=== PATIENT | male | born 1950 | race Caucasian/White ===

== ENCOUNTER → 2017-04-16 | Outpatient (CLI) | payer MEDICARE, BC ==
[2017-04-16 10:09] LABS: Blood Urea Nitrogen 10 mg/dL (9-20); Non-African American GFR(MDRD) >60 (>60 ml/min/1.73 sqM)
--- NOTE | 2017-04-16 11:22 | CT ---
EXAMINATION TYPE: CT angio chest DATE OF EXAM: 04/16/2017 COMPARISON: CTA chest April 10, 2016 and older studies HISTORY: AAA CT DLP: 805 mGycm. Automated Exposure Control for Dose Reduction was Utilized. CONTRAST: CTA scan of the thorax is performed without and with IV Contrast, patient injected with 100 mL of Omn ipaque 350, pulmonary embolism protocol. Three-D reconstructed images are created on independent work station and reviewed. FINDINGS: LUNGS: The lungs are grossly clear, there is no concerning parenchymal mass or nodule identified. T here is no pleural effusion or pneumothorax seen. The tracheobronchial tree is patent. MEDIASTINUM: There is satisfactory enhancement of the pulmonary artery and its branches, there is no CT evidence for pulmonary embolism. There are no greater than 1 cm hilar or mediastinal lymph nodes. No cardiomegaly or pericardial effusion is seen. Ascending aorta measures up to 5.0 cm diameter on axial image 33 felt not significantly changed from prior. No aneurysm of the aortic arch or descendi ng aorta is present. No significant plaque or stenosis seen. Coronary artery calcification is redemon strated which is noted marker for coronary artery disease. OTHER: There is 1.6 cm splenule posterior to the spleen redemonstrated on axial image 64. There is 2. 1 x 1.5 cm left adrenal mass with Hounsfield units less than 10 consistent with lipid rich adenoma fe lt stable accounting for technical differences. There is moderate multilevel spurring in the lower th oracic spine seen. IMPRESSION: Stable 5.0 cm ascending aortic aneurysm.
== END | disposition home or self-care (01) ==
LOC: RADCTMAIN 09:39
PROVIDERS: ATTEND Thoracic Surgery (Cardiothoracic Vascular Surgery)
DX: I71.2 Thoracic aortic aneurysm, without rupture (principal)
CPT/HCPCS: 82565; 84520; 71275; 36415; Q9967

== ENCOUNTER → 2018-04-24 | Outpatient (CLI) | payer MEDICARE ==
--- NOTE | 2018-04-24 12:43 | CT ---
EXAMINATION TYPE: CT angio chest DATE OF EXAM: 04/24/2018 COMPARISON: 04/16/2017 HISTORY: Thoracic Aorta Aneurysm CT DLP: 525.5 mGycm. Automated Exposure Control for Dose Reduction was Utilized. CONTRAST: CTA scan of the thorax is performed with IV Contrast, patient injected with 100 ml mL of Isovue 300, pulmonary embolism protocol. MIP Images are created on CT scanner and reviewed. FINDINGS: LUNGS: The lungs are grossly clear, there is no concerning parenchymal mass or nodule identified. T here is no pleural effusion or pneumothorax seen. The tracheobronchial tree is patent. MEDIASTINUM: The ascending thoracic aortic aneurysm is known to the patient is unchanged from the kyung or of 04/16/2017 measuring 5.0 cm on coronal image 36 at the level of the main pulmonary artery. Aorti c root is also aneurysmal measuring 4.7 cm. There is no evidence of aortic dissection. There is a con ventional three-vessel branch pattern of the aortic arch. No focal aneurysmal outpouching. There are moderate coronary calcifications, specifically of the left anterior descending coronary artery there most severe. No descending thoracic aortic aneurysm arm main pulmonary artery enlargement is seen. Th ere is a small hiatal hernia in the posterior mediastinum. There are no greater than 1 cm hilar or mediastinal lymph nodes. No cardiomegaly or pericardial eff usion is seen. OTHER: Low-density 1.6 cm left adrenal gland lesion is compatible with a benign lipid rich adrenal ad enoma. Small splenule is seen adjacent to the [place] spleen. Hepatic enhancement is slightly heteroge nous although this could relate to phase of enhancement given the angiographic phase and appears over all similar to exam of 04/16/2017 with heterogeneity most apparent near the gallbladder fossa on image 109. This does appear somewhat rounded and masslike on liver windows and further imaging could be pe rformed. IMPRESSION: 1. Stable ascending thoracic aortic aneurysm and dilatation of the aortic root in comparison to exam of 04/16/2017. 2. Heterogenous rounded appearing hepatic region for which further characterization with dynamic enha nced MR could be performed.
== END | disposition home or self-care (01) ==
LOC: RADCTMAIN 09:51
PROVIDERS: ATTEND Thoracic Surgery (Cardiothoracic Vascular Surgery)
DX: I71.2 Thoracic aortic aneurysm, without rupture (principal)
CPT/HCPCS: 82565; 84520; 71275; 36415; Q9967

== ENCOUNTER → 2019-05-12 | Outpatient (CLI) | payer MEDICARE ==
--- NOTE | 2019-05-12 12:15 | CT ---
EXAMINATION TYPE: CT angio chest DATE OF EXAM: 05/12/2019 11:50 AM COMPARISON: 04/24/2018 HISTORY: thoracic aneurysm CT DLP: 359.4 mGycm Automated exposure control for dose reduction was used. CONTRAST: CTA scan of the thorax is performed with IV Contrast, patient injected with 100 mL of Isovue 370, pul monary embolism protocol. . FINDINGS: LUNGS: The lungs are grossly clear, there is no concerning parenchymal mass or nodule identified. T here is no pleural effusion or pneumothorax seen. The tracheobronchial tree is patent. Central basil ar bronchiectasis noted. Small bleb is seen in the superior segment right lower lobe posteriorly. MEDIASTINUM: Aorta: There is diffuse dilation of the ascending aorta with maximum dimension measuring 5 x 5 cm whi ch is stable from the prior exam. Aortic root measures 4.7 cm and is stable. There is no evidence of aortic dissection. Conventional three-vessel branching anatomy of the aortic arch. No focal aneurysmal dilation. Moderately calcified coronary artery three-vessel disease. Descending thoracic aorta and main pulmonary artery appear to measure within normal limits. Small hia pati hernia incidentally noted. Small amount pericardial fluid is seen in the superior pericardial recess. OTHER: Low-density 1.6 cm left adrenal gland lesion is compatible with a benign lipid rich adrenal a denoma. Small splenule is seen adjacent to the [place] spleen. Hepatic enhancement is slightly heterogenous although this could relate to phase of enhancement given the angiographic phase and appears overall similar to prior exam with heterogeneity most apparent ne ar the gallbladder fossa. This does appear somewhat rounded and masslike on liver windows and measures approximately 3 cm. Hypertrophic and degenerative change of the spine noted. IMPRESSION: 1. Stable ascending thoracic aortic aneurysm and dilatation of the aortic root in comparison to PRIOR EXAM. 2. Heterogenous rounded appearing hepatic ENHANCING MASS for which further characterization with lala yusuf enhanced MR could be performed.
== END | disposition home or self-care (01) ==
LOC: RADCTMAIN 09:49
PROVIDERS: ATTEND Thoracic Surgery (Cardiothoracic Vascular Surgery)
DX: I71.2 Thoracic aortic aneurysm, without rupture (principal)
CPT/HCPCS: 82565; 84520; 71275; 36415; Q9967

== ENCOUNTER → 2020-05-18 | Outpatient (CLI) | payer MEDICARE ==
--- NOTE | 2020-05-18 12:53 | CT ---
EXAMINATION TYPE: CT chest w con DATE OF EXAM: 05/18/2020 COMPARISON: CTA chest May 12, 2019 older studies HISTORY: F/U thoracic aneurysm CT DLP: 316.7 mGycm. Automated Exposure Control for Dose Reduction was Utilized. TECHNIQUE: CT scan of the thorax is performed following with IV Contrast, patient injected with 100 mL of Isovue 300. FINDINGS: LUNGS: The lungs remain grossly clear, there is no concerning parenchymal mass or nodule identified. There is no pleural effusion or pneumothorax seen. The tracheobronchial tree is patent. MEDIASTINUM: Satisfactory enhancement of the central pulmonary arteries. Persistent ascending aortic aneurysm measuring up to 5.1 cm at level of the main pulmonary artery axial image 30. No aneurysmal e xtension into the arch or descending aorta. Normal 3 vessel origins from arch. There are no greater t yin 1 cm hilar or mediastinal lymph nodes. No cardiomegaly or pericardial effusion is seen. OTHER: Stable small hiatal hernia. Stable 2.2 cm left adrenal mass axial image 58 consistent with adán ign adenoma and smaller posterior splenule axial image 56. IMPRESSION: Stable 5.1 cm ascending aortic aneurysm when accounting for technical differences.
== END | disposition home or self-care (01) ==
LOC: RADCTMAIN 11:41
PROVIDERS: ATTEND Thoracic Surgery (Cardiothoracic Vascular Surgery)
DX: I71.2 Thoracic aortic aneurysm, without rupture (principal)
CPT/HCPCS: 82565; 84520; 71260; 36415; Q9967

== ENCOUNTER → 2021-05-16 | Outpatient (CLI) | payer MEDICARE ==
--- NOTE | 2021-05-16 11:25 | CT ---
EXAMINATION TYPE: CT angio chest DATE OF EXAM: 05/16/2021 9:49 AM COMPARISON: CT chest May 18, 2020 HISTORY: thoracic aortic aneurysm CT DLP: 627.5 mGycm Automated exposure control for dose reduction was used. CONTRAST: CTA scan of the thorax is performed without and with IV Contrast, patient injected with 100 mL of Iso aliica 370, aneurysm protocol. 3D reconstructed images are created on an independent workstation and re viewed.. FINDINGS: LUNGS: The lungs are grossly clear, there is no concerning parenchymal mass or nodule identified. T here is no pleural effusion or pneumothorax seen. The tracheobronchial tree is patent. MEDIASTINUM: There is satisfactory enhancement of the Central pulmonary arteries. Persistent ascendi ng aortic aneurysm measuring up to 5.0 cm at level of main pulmonary artery axial image 31 series 6. No extension into the arch or descending aorta. No significant change from most recent prior. There a re no greater than 1 cm hilar or mediastinal lymph nodes. No cardiomegaly or pericardial effusion i s seen. OTHER: Stable 2.2 cm low dense left adrenal mass axial image 61. Peripheral just over 1.0 cm flash f illing area of anterior right hepatic lobe axial image 64 is presumed transient hepatic attenuation d ifference. IMPRESSION: There is stable 5.0 cm ascending aortic aneurysm when accounting for technical difference s.
== END | disposition home or self-care (01) ==
LOC: RADCTMAIN 08:27
PROVIDERS: ATTEND Thoracic Surgery (Cardiothoracic Vascular Surgery)
DX: I71.2 Thoracic aortic aneurysm, without rupture (principal)
CPT/HCPCS: 82565; 84520; 71275; 36415; Q9967

== ENCOUNTER → 2022-06-01 | Outpatient (CLI) | payer MEDICARE ==
--- NOTE | 2022-06-01 12:23 | CT ---
EXAMINATION TYPE: CT angio chest DATE OF EXAM: 06/01/2022 12:08 PM COMPARISON: 05/16/2021 HISTORY: Thoracic aortic aneurysm, without rupture CT DLP: 788 mGycm Automated exposure control for dose reduction was used. CONTRAST: CTA scan of the thorax is performed without and with IV Contrast, patient injected with 100 ml mL of Isovue 370, pulmonary embolism protocol. . FINDINGS: LUNGS: The lungs are grossly clear, there is no concerning parenchymal mass or nodule identified. T here is no pleural effusion or pneumothorax seen. The tracheobronchial tree is patent. Emphysematou s changes are seen and there is central and basilar mild bronchiectasis. MEDIASTINUM: There is satisfactory enhancement of the pulmonary artery and its branches, there is no CT evidence for pulmonary embolism. There are no greater than 1 cm hilar or mediastinal lymph nodes. No pericardial effusion is seen. Coronary artery calcification noted. Calcification of the aortic valve noted. AORTA: There is aneurysmal dilation of the ascending aorta with a maximal dimension of 5.1 cm stable from pr ior exam. Ascending thoracic aorta is stable and standard 3 vessel aortic arch anatomy OTHER: Hypertrophic and degenerative changes spine. There is a stable left adrenal mass measuring 4 Hounsfield units and 2 cm most typical of an adenoma. Accessory spleens noted. There remains an area of abnormal attenuation involving the liver appears somewhat increased from prior exam within the lef t lobe of the liver extending into the anterior margin of the right lobe lateral segment. This could represent an area of focal fatty truncation but appears somewhat nodular. Recommend MRI of the liver. IMPRESSION: 1. Ascending aortic aneurysm measures 5.1 cm and previously measured 5 cm. 2. Nodular abnormal attenuation left lobe of the liver. Recommend MRI of the liver. 3. Stable left adrenal nodule most typical of adenoma. 4. Dense coronary artery calcification correlate clinically. 5. COPD with central and basilar mild bronchiectasis. 6. Calcifications of the aortic valve.
== END | disposition home or self-care (01) ==
LOC: RADCTMAIN 09:26
PROVIDERS: ATTEND Internal Medicine Interventional Cardiology
DX: I71.20 Thoracic aortic aneurysm, without rupture, unspecified (principal); I25.10 Atherosclerotic heart disease of native coronary artery without angina pectoris; J44.9 Chronic obstructive pulmonary disease, unspecified; K76.89 Other specified diseases of liver
CPT/HCPCS: 82565; 84520; 71275; 36415; Q9967

== ENCOUNTER → 2022-10-23 | Outpatient (CLI) | payer MEDICARE ==
[2022-10-23 15:54] LABS: ALT 32 U/L (10-49); AST 39 U/L (14-35); African American GFR (CKD) 80.3 (60.0-200.0); Albumin 4.3 g/dL (3.8-4.9); Albumin/Globulin Ratio 1.26 (1.60-3.17); Alkaline Phosphatase 163 U/L (41-126); BUN/Creat Ratio 12.08 Ratio (12.00-20.00); Blood Urea Nitrogen 12.8 mg/dL (9.0-27.0); Calcium 9.4 mg/dL (8.7-10.3); Carbon Dioxide 27.1 mmol/L (20.0-27.5); Chloride 102 mmol/L (96-109); Chol/HDL Ratio 2.37 Ratio; Globulin 3.4 g/dL (1.6-3.3); Glucose 101 mg/dL (70-110); LDL Cholesterol,Calculated 75.4 mg/dL (0.0-131.0); Non-African American GFR(CKD) 69.3 (60.0-200.0); Potassium 5.1 mmol/L (3.5-5.5); Sodium 135 mmol/L (135-145); Total Protein 7.6 g/dL (6.2-8.2); VLDL Calculation 8.46 mg/dL (5.00-40.00)
== END | disposition home or self-care (01) ==
LOC: LABWHC1 09:51
PROVIDERS: ATTEND Internal Medicine Interventional Cardiology
DX: E78.2 Mixed hyperlipidemia (principal)
CPT/HCPCS: 36415; 80053; 80061

== ENCOUNTER → 2023-06-26 | Outpatient (CLI) | payer MEDICARE ==
[2023-06-26 12:02] LABS: African American GFR (CKD) >90 (>60 ml/min/1.73 sqM); Blood Urea Nitrogen 17 mg/dL (9-20); Non-African American GFR(CKD) 79 (>60 ml/min/1.73 sqM)
--- NOTE | 2023-06-26 14:14 | CT ---
"EXAMINATION TYPE: CT angio chest DATE OF EXAM: 06/26/2023 2:01 PM COMPARISON: 06/01/2020 HISTORY: THORACIC AORTIC ANEURYSM CT DLP: 754 mGycm Automated exposure control for dose reduction was used. CONTRAST: CTA scan of the thorax is performed without and with IV Contrast, patient injected with 100ml mL of I sovue 370, pulmonary embolism protocol. . FINDINGS: LUNGS: The lungs are grossly clear, there is no concerning parenchymal mass or nodule identified. The re is no pleural effusion or pneumothorax seen. The tracheobronchial tree is patent. Emphysematous ch anges are seen and there is central and basilar mild bronchiectasis. MEDIASTINUM: There is satisfactory enhancement of the pulmonary artery and its branches, there is no CT evidence for pulmonary embolism. There are no greater than 1 cm hilar or mediastinal lymph nodes. No pericardial effusion is seen. Coronary artery calcification noted. Calcification of the aortic juan ramon ve noted. AORTA: There is aneurysmal dilation of the ascending aorta with a maximal dimension of 5.1 cm stable from prior exam. No significant atherosclerotic changes of the aorta. There is standard 3 vessel aort ic arch anatomy OTHER: Hypertrophic and degenerative changes spine. There is a stable left adrenal mass measuring 4 H ounsfield units and 2 cm most typical of an adenoma. Accessory spleens noted. There remains an area o f abnormal attenuation involving the liver appears somewhat increased from prior exam within the left lobe of the liver extending into the anterior margin of the right lobe lateral segment. This could r epresent an area of focal fatty truncation but appears somewhat nodular. Recommend MRI of the liver. Small hiatal hernia. IMPRESSION: 1. Ascending aortic aneurysm measures 5.1 cm and previously measured 5.1 cm. 2. Nodular abnormal mass left lobe of the liver. Mild intrahepatic biliary ductal dilation Recommend MRI of the liver to exclude mass. 3. Stable left adrenal nodule most typical of adenoma. 4. Dense coronary artery calcification correlate clinically. 5. COPD with central and basilar mild bronchiectasis. 6. Calcifications of the aortic valve. A Yellow level critical message alert has been initiated for Sohail Mares MD via the [employer] 36 0 | Critical Results System on 06/26/2023 2:08 PM. This message alert has been sent to Sohail Mares MD via the preferences provided by the clinician for the receipt of Radiology Critical Findings. [facility] – [place] [id number]."
== END | disposition home or self-care (01) ==
LOC: RADCTMAIN 11:20
PROVIDERS: ATTEND Internal Medicine Interventional Cardiology
DX: I71.21 Aneurysm of the ascending aorta, without rupture (principal); I25.10 Atherosclerotic heart disease of native coronary artery without angina pectoris; J44.9 Chronic obstructive pulmonary disease, unspecified; J47.9 Bronchiectasis, uncomplicated; E27.8 Other specified disorders of adrenal gland; I70.0 Atherosclerosis of aorta; R16.0 Hepatomegaly, not elsewhere classified
CPT/HCPCS: 82565; 84520; 71275; Q9967

== ENCOUNTER 2023-07-29 10:53 | Emergency (ER) | payer MEDICARE ==
[2023-07-29 12:21] LABS: Basophils % (A) 0 %; Eosinophils # (A) 0.2 k/uL (0-0.7); Eosinophils % (A) 3 %; HCT 39.1 % (39.0-53.0); HGB 13.3 gm/dL (13.0-17.5); Lymphocytes # (A) 1.3 k/uL (1.0-4.8); Lymphocytes % (A) 16 %; MCH 31.1 pg (25.0-35.0); MCV 91.5 fL (80.0-100.0); Mean Platelet Volume 11.7; Monocytes # (A) 0.7 k/uL (0-1.0); Monocytes % (A) 9 %; Neutrophils # (A) 5.9 k/uL (1.3-7.7); Neutrophils % (A) 70 %; Platelet Count 204 k/uL (150-450); RBC 4.27 m/uL (4.30-5.90); RDW 15.7 % (11.5-15.5); WBC 8.3 k/uL (3.8-10.6)
--- NOTE | 2023-07-29 12:21 | ED ---
General Adult HPI - General Chief complaint: Abdominal Pain Stated complaint: jaundice Time Seen by Provider: 07/29/23 12:03 Source: patient, RN notes reviewed, old records reviewed Mode of arrival: ambulatory Limitations: no limitations - History of Present Illness Initial comments: 73-year-old male presenting with weight loss and jaundice. Patient states that he was diagnosed with a liver mass approximately one month ago. He has been receiving outpatient workup including MRI and has a scheduled appointment with gastroenterology. He states that his appointment is several weeks away and he's had a rapid progression of his jaundice as well as a 15 pound weight loss. He denies pain. Denies vomiting. - Related Data Home Medications Medication Instructions Recorded Confirmed Atorvastatin [Lipitor] 20 mg PO DAILY 07/29/23 07/29/23 Allergies Allergy/AdvReac Type Severity Reaction Status Date / Time No Known Allergies Allergy Verified 07/29/23 14:25 Review of Systems ROS Statement: Those systems with pertinent positive or pertinent negative responses have been documented in the HPI. ROS Other: All systems not noted in ROS Statement are negative. Past Medical History Past Medical History: Hyperlipidemia Additional Past Medical History / Comment(s): Mass on Liver. History of Any Multi-Drug Resistant Organisms: None Reported Past Surgical History: No Surgical Hx Reported Past Psychological History: No Psychological Hx Reported Smoking Status: Never smoker Past Alcohol Use History: Occasional Past Drug Use History: None Reported General Exam Limitations: no limitations General appearance: alert, in no apparent distress Head exam: Present: atraumatic, normocephalic Neck exam: Present: normal inspection. Absent: tenderness Respiratory exam: Present: normal lung sounds bilaterally. Absent: respiratory distress, wheezes Cardiovascular Exam: Present: regular rate, normal rhythm GI/Abdominal exam: Present: soft. Absent: distended, tenderness Extremities exam: Present: normal inspection Neurological exam: Present: alert, oriented X3, CN II-XII intact Skin exam: Present: warm, dry, other (Jaundice) Course Vital Signs 07/29/23 07/29/23 10:55 13:35 Temperature 98.9 F Pulse Rate 79 67 Respiratory 20 18 Rate Blood Pressure 133/82 106/69 O2 Sat by Pulse 99 97 Oximetry Medical Decision Making - Medical Decision Making Was pt. sent in by a medical professional or institution (, PA, FISH AGENT, urgent care, hospital, or snf...) When possible be specific @ -No Did you speak to anyone other than the patient for history (EMS, parent, family, police, friend...)? What history was obtained from this source @ -No Did you review nursing and triage notes (agree or disagree)? Why? @ -I reviewed and agree with nursing and triage notes Were old charts reviewed (outside hosp., previous admission, EMS record, old EKG, old radiological studies, urgent care reports/EKG's, snf records)? Report findings @ -No old charts were reviewed Differential Diagnosis (chest pain, altered mental status, abdominal pain women, abdominal pain men, vaginal bleeding, weakness, fever, dyspnea, syncope, headache, dizziness, GI bleed, back pain, seizure, CVA, palpatations, mental health, musculoskeletal)? @ -not applicable EKG interpreted by me (3pts min.). @ -As above X-rays interpreted by me (1pt min.). @ -None done CT interpreted by me (1pt min.). @ Ultrasound showing dilated common bile duct and concern for, bile duct obstruction U/S interpreted by me (1pt. min.). @ -None done What testing was considered but not performed or refused? (CT, X-rays, U/S, labs)? Why? @ -None What meds were considered but not given or refused? Why? @ -None Did you discuss the management of the patient with other professionals (professionals i.e. , PA, FISH AGENT, lab, RT, psych nurse, healthcare social worker, community service technician, teacher, commanding officer motorized squad, rehabilitation case coordinator)? Give summary @ -[Case discussed with [facility] Dr. carrillo. [facility]. Was smoking cessation discussed for >3mins.? @ -No Was critical care preformed (if so, how long)? @ -No Were there social determinants of health that impacted care today? How? (Homelessness, low income, unemployed, alcoholism, drug addiction, transportation, low edu. Level, literacy, decrease access to med. care, fdc, rehab)? @ -No Was there de-escalation of care discussed even if they declined (Discuss DNR or withdrawal of care, Hospice)? DNR status @ -No What co-morbidities impacted this encounter? (DM, HTN, Smoking, COPD, CAD, Cancer, CVA, ARF, Chemo, Hep., AIDS, mental health diagnosis, sleep apnea, morbid obesity)? @ -None Was patient admitted / discharged? Hospital course, mention meds given and route, prescriptions, significant lab abnormalities, going to OR and other pertinent info. @ -73-year-old male presenting with painless jaundice, no significant past medical history. Ultrasound today shows a dilated common bile duct and try ductal mass. The bilirubin is elevated at 11. The patient's additional laboratory testing reveals a transaminitis and elevated alkaline phosphatase. CBC unremarkable, left lites unremarkable. Patient is hemodynamically stable. I did discuss case with Dr. Manuel pemberton for gastroenterology who recommends transfer for higher level of care to [facility]. Undiagnosed new problem with uncertain prognosis? @ -No Drug Therapy requiring intensive monitoring for toxicity (Heparin, Nitro, Insulin, Cardizem)? @ -No Were any procedures done? @ -No Diagnosis/symptom? @ Obstructing biliary mass with hyperbilirubinemia Acute, or Chronic, or Acute on Chronic? @ -[Acute Uncomplicated (without systemic symptoms) or Complicated (systemic symptoms)? @ -default Side effects of treatment? @ -No Exacerbation, Progression, or Severe Exacerbation? @ -No Poses a threat to life or bodily function? How? (Chest pain, [place], [place], pneumonia, PE, COPD, DKA, ARF, appy, cholecystitis, CVA, Diverticulitis, Homicidal, Suicidal, threat to staff... and all critical care pts) @ -[Yes, biliary malignancy - Lab Data Result diagrams: 07/29/23 12:10 07/29/23 12:10 Lab Results 07/29/23 07/29/23 07/29/23 Range/Units 12:10 12:10 12:10 WBC 8.3 (3.8-10.6) k/uL RBC 4.27 L (4.30-5.90) m/uL Hgb 13.3 (13.0-17.5) gm/dL Hct 39.1 (39.0-53.0) % MCV 91.5 (80.0-100.0) fL MCH 31.1 (25.0-35.0) pg MCHC 34.0 (31.0-37.0) g/dL RDW 15.7 H (11.5-15.5) % Plt Count 204 (150-450) k/uL MPV 11.7 Neutrophils % 70 % Lymphocytes % 16 % Monocytes % 9 % Eosinophils % 3 % Basophils % 0 % Neutrophils # 5.9 (1.3-7.7) k/uL Lymphocytes # 1.3 (1.0-4.8) k/uL Monocytes # 0.7 (0-1.0) k/uL Eosinophils # 0.2 (0-0.7) k/uL Basophils # 0.0 (0-0.2) k/uL Manual Slide Review Performed Large Platelets Present Target Cells Present PT 12.3 (10.0-12.5) sec INR 1.2 H (<1.2) APTT 26.0 (22.0-30.0) sec Sodium 141 (137-145) mmol/L Potassium 4.0 (3.5-5.1) mmol/L Chloride 104 (98-107) mmol/L Carbon Dioxide 27 (22-30) mmol/L Anion Gap 10 mmol/L BUN 15 (9-20) mg/dL Creatinine 0.85 (0.66-1.25) mg/dL Est GFR (CKD-EPI)AfAm >90 (>60 ml/min/1.73 sqM) Est GFR (CKD-EPI)NonAf 86 (>60 ml/min/1.73 sqM) Glucose 132 H (74-99) mg/dL Calcium 9.0 (8.4-10.2) mg/dL Total Bilirubin 11.2 H (0.2-1.3) mg/dL Conjugated Bilirubin 5.8 H (0.0-0.3) mg/dL Unconjugated Bilirubin 1.8 H (0.0-1.1) mg/dL Delta Bilirubin 3.6 H (0.0-0.2) mg/dL AST 187 H (17-59) U/L ALT 162 H (4-49) U/L Alkaline Phosphatase 762 H (38-126) U/L Total Protein 7.3 (6.3-8.2) g/dL Albumin 3.5 (3.5-5.0) g/dL Amylase 85 (30-110) U/L Lipase 186 (23-300) U/L Disposition Clinical Impression: Mass of common bile duct, Hyperbilirubinemia Disposition: OTHER INSTITUTION NOT DEFINED Condition: Stable Is patient prescribed a controlled substance at d/c from ED?: No Referrals: Armando Garcia DO [Primary Care Provider] - 1-2 days Time of Disposition: 16:59 - Out of Hospital Transfer - Req. Specs Out of Hospital Transfer - Requested Specifics: Other Non-Acute (Transferred to [facility])
[2023-07-29 12:32] LABS: INR 1.2 (<1.2); Prothrombin Time 12.3 sec (10.0-12.5)
[2023-07-29 12:39] LABS: ALT 162 U/L (4-49); AST 187 U/L (17-59); African American GFR (CKD) >90 (>60 ml/min/1.73 sqM); Albumin 3.5 g/dL (3.5-5.0); Amylase 85 U/L (30-110); Anion Gap 10 mmol/L; Bilirubin, Conjugated 5.8 mg/dL (0.0-0.3); Bilirubin, Delta 3.6 mg/dL (0.0-0.2); Bilirubin,Unconjugated 1.8 mg/dL (0.0-1.1); Blood Urea Nitrogen 15 mg/dL (9-20); Carbon Dioxide 27 mmol/L (22-30); Chloride 104 mmol/L (98-107); Glucose 132 mg/dL (74-99); Lipase 186 U/L (23-300); Non-African American GFR(CKD) 86 (>60 ml/min/1.73 sqM); Sodium 141 mmol/L (137-145); Total Bilirubin 11.2 mg/dL (0.2-1.3); Total Protein 7.3 g/dL (6.3-8.2)
[2023-07-29 13:14] LABS: Large Platelets Present
--- NOTE | 2023-07-29 13:14 | US ---
EXAMINATION TYPE: US gallbladder DATE OF EXAM: 07/29/2023 COMPARISON: NONE CLINICAL INDICATION: Male, 73 years old with history of painless Jaundice; no pain, turning yellow, l ost 15lbs this past month, nevarez stools, recent CT showed liver mass TECHNIQUE: Multiple sonographic images of the right upper quadrant are obtained. 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 Multiple l hepatic lesions as previously described by CT scan 06/26/2023 suggestive of underlying malignancy 2. There is intrahepatic biliary ductal dilation. There also appears to be abnormal echogenicity with in the dilated distal common bile duct which measures 1.4 cm. Underlying mucosal lesion\mass in the d ifferential diagnosis. Recommend follow-up ERCP or MRCP. 3. The gallbladder is contracted which limits its evaluation. No obvious gallstones. Mild gallbladder wall thickening most likely related to gallbladder incomplete distention.
[2023-07-29 13:17] LABS: Target Cells Present
[2023-07-29 14:18] LABS: Alkaline Phosphatase 762 U/L (38-126)
[2023-07-29] MEDS: SODIUM CHLORIDE 0.9% 1,000 ML IV SCH (16:00)
[2023-07-29 23:57] VITALS: RESP 16
[2023-07-30] MEDS: SODIUM CHLORIDE 0.9% 1,000 ML IV SCH (05:15)
[2023-07-30 07:52] VITALS: BP 137/88; PULSE 68; TEMP 97.9
== END 2023-07-30 13:13 | disposition other institution (70) ==
LOC: EC 10:53
DX: K83.8 Other specified diseases of biliary tract (principal); E80.6 Other disorders of bilirubin metabolism; E78.5 Hyperlipidemia, unspecified; Z79.899 Other long term (current) drug therapy
CPT/HCPCS: 36415; 76705; 80053; 82150; 82248; 83690; 85025; 85610; 85730; 96360; 96361; 99285